=== PATIENT | female | born 1970 | race Caucasian/White ===

== ENCOUNTER 2023-01-07 18:40 | Emergency (ER) | payer BC, SELFPAY ==
[2023-01-07 18:46] VITALS: BP 130/81; PULSE 70; RESP 18; TEMP 37.1; O2SAT 100; BMI 27.2
--- NOTE | 2023-01-07 18:49 | XR_ITS ---
[address] [address] Patient Name: GLENIS PEREZ MRN: [id number] date: 1970 Sex: F Assigned Patient Location: ER Current Patient Location: ED.MAIN Accession/Order Number: [id number] Exam Date: 01/07/2023 19:04 Report Date: 01/07/2023 19:26 At the request of: ALEXANDRO WONG Procedure: XR foot LT min 3V EXAM: XR foot LT min 3V HISTORY: Dropped frozen hamburger on foot COMPARISON: None. TECHNIQUE: 3 views FINDINGS: No osseous lesion, fracture, dislocation or subluxation. Joint spaces are normal. No visualized effusion. No visualized soft tissue edema. XR/XR foot LT min 3V IMPRESSION: Normal x-rays Electronically authenticated by: KAJAL GRIFFITH Date: 01/07/2023 19:26
--- NOTE | 2023-01-07 19:12 | ED.LOWEXI1 ---
HPI - Extremity Injury (Lower) General Chief Complaint: Extremity Injury, Lower Stated Complaint: L TOE INJURY Time Seen by Provider: 01/07/23 19:11 Source: patient Mode of arrival: walk-in Limitations: no limitations History of Present Illness HPI Narrative: drop frozen hamburgers on her left foot striking her left 5th toe within the past 2 hours. complains of pain. Denies other injury Related Data Allergies Allergy/AdvReac Type Severity Reaction Status Date / Time No Known Drug Allergies Allergy Verified 01/07/23 18:46 Review of Systems ROS Status of ROS 10 or more systems reviewed and unremarkable except as noted in history and below Exam Constitutional Vital Signs, click to edit/add: Last Vital Signs Temp 98.7 F 01/07/23 18:46 Pulse 70 01/07/23 18:46 Resp 18 01/07/23 18:46 BP 130/81 01/07/23 18:46 Pulse Ox 100 01/07/23 18:46 O2 Del Method Room Air 01/07/23 18:46 Common normals: no apparent distress, average body habitus, oriented x3, no limitations, healthy appearing, alert and well nourished Eye Common normals: PERRL and EOMs intact bilaterally Respiratory Common normals: normal respiratory effort, no retractions and no use of accessory muscles Cardio Common normals: regular rate and regular rhythm Extremity Other: left 5th toe with mild swelling and mod tenderness. No discoloration or deformity Neuro Common normals: oriented x3, CN's II-XII intact bilaterally, moves all extremities, no focal motor deficits and no sensory deficits noted Psych Appearance: grossly normal Course Vital Signs Vital signs: Vital Signs Temperature 98.7 F 01/07/23 18:46 Pulse Rate 70 01/07/23 18:46 Respiratory Rate 18 01/07/23 18:46 Blood Pressure 130/81 01/07/23 18:46 Pulse Oximetry 100 01/07/23 18:46 Oxygen Delivery Method Room Air 01/07/23 18:46 Temperature 98.7 F 01/07/23 18:46 Pulse Rate 70 01/07/23 18:46 Respiratory Rate 18 01/07/23 18:46 Blood Pressure 130/81 01/07/23 18:46 Pulse Oximetry 100 01/07/23 18:46 Oxygen Delivery Method Room Air 01/07/23 18:46 MDM - Extremity Injury (Lower) MDM Narrative Medical decision making narrative: patient drop frozen hamburgers on her left foot. Injured left 5th toe. mod tenderness. No deformity. xrays neg. Patient and informed . Patient discharged home diagnosis of left 5th toe contusion Imaging Data Abdominal x-ray: Radiologist's impression: Patient Name: GLENIS PEREZ MRN: [id number] date: 1970 Sex: F Assigned Patient Location: ER Current Patient Location: ED.MAIN Accession/Order Number: [id number] Exam Date: 01/07/2023 19:04 Report Date: 01/07/2023 19:26 At the request of: ALEXANDRO WONG Procedure: XR foot LT min 3V EXAM: XR foot LT min 3V HISTORY: Dropped frozen hamburger on foot COMPARISON: None. TECHNIQUE: 3 views FINDINGS: No osseous lesion, fracture, dislocation or subluxation. Joint spaces are normal. No visualized effusion. No visualized soft tissue edema. XR/XR foot LT min 3V IMPRESSION: Normal x-rays Discharge Plan Discharge Chief Complaint: Extremity Injury, Lower Clinical Impression: Contusion of fifth toe, left Patient Disposition: Home, Self-Care Instructions: Foot Contusion (ED) Additional Instructions: use ibuprofen for pain Stand Alone Forms: Portal Instructions Referrals: Physician,Non-Staff, MD [Primary Care Provider] - 1 week
== END 2023-01-07 20:09 | disposition home or self-care (01) ==
PROVIDERS: Emergency Provider Internal Medicine
DX: S90.122A Contusion of left lesser toe(s) without damage to nail, initial encounter (principal); W20.8XXA Other cause of strike by thrown, projected or falling object, initial encounter
CPT/HCPCS: 73630; 99283